=== PATIENT | female | born 1940 | race African-American/Black ===

== ENCOUNTER 2021-05-09 13:16 | Inpatient (IN) | payer OTHER, MEDICARE ==
[2021-05-08 11:58] VITALS: BMI 31.2
[~2021-05-09 13:16] MED LIST: BENZOIN 118 ML SPRAY.PUMP TP ONE; BUPIVACAINE HCL/PF 0.5% (5MG/ML) 10 ML VIAL ONE; BUPIVACAINE LIPOSOME/PF (EXPAREL) 266 MG/20 ML VIAL ONE; DEXMEDETOMIDINE HCL 200 MCG/2 ML IVPB ONE; LACTATED RINGERS SOLUTION 1,000 ML IV SCH; LIDOCAINE HCL 2% (20ML MULTI-DOSE VIAL) ONE; MAG HYDROX/AL HYDROX/SIMETH 30 ML UNIT-DOSE CUP PO PRN; MAGNESIUM HYDROX 2400MG/30ML ORAL SUSPENSION 30 ML CUP PO PRN; MIDAZOLAM HCL 2 MG/2 ML SINGLE DOSE VIAL ONE; ONDANSETRON 4 MG/2 ML VIAL IVPUSH PRN; PATIENT'S OWN MEDICATION (NON-FORMULARY) (Esomeprazole Magnesium [Nexium 24hr] 20 MG Capsu PO PRN; PROPOFOL 20 ML ONE; ROPIVACAINE HCL 0.5% 30ML VIAL ONE; SODIUM CHLORIDE 0.9% P/F 10 ML VIAL IJ ONE; ePHEDrine SULFATE 50 MG/1 ML AMPULE ONE
[2021-05-09] MEDS ORDERED: LACTATED RINGERS SOLUTION 1,000 ML IV SCH (13:30)
[2021-05-09] MEDS ORDERED: ACETAMINOPHEN INJECTION 100 ML IVPB ONE (13:34)
[2021-05-09] MEDS ORDERED: ACETAMINOPHEN 1000 MG/100 ML VIAL IVPB ONE (14:00)
[2021-05-09] MEDS: oxyCODONE HCL 5 MG TABLET PO PRN ×4 (15:18→23:41)
[2021-05-09] MEDS ORDERED: ceFAZolin SODIUM 1 GM VIAL ONE ×2 (17:07→21:06)
[2021-05-09] MEDS ORDERED: DEXTROSE 5%-WATER - 50 ML IVPB ONE ×2 (17:07→21:06)
[2021-05-09] MEDS: CEFAZOLIN 2 GM in DEXTROSE 5%-WATER - 50 ML IVPB SCH ×2 (17:17→23:42)
[2021-05-09] MEDS: SENNOSIDES/DOCUSATE COMBO (SENNA PLUS) TABLET (UD) PO SCH (21:14)
[2021-05-09] MEDS: ASPIRIN COATED 81 MG TABLET.EC PO SCH (21:14)
[2021-05-10] MEDS ORDERED: DEXTROSE 5%-WATER - 50 ML IVPB ONE (04:04)
[2021-05-10] MEDS ORDERED: ceFAZolin SODIUM 1 GM VIAL ONE (04:04)
[2021-05-10] MEDS: CEFAZOLIN 2 GM in DEXTROSE 5%-WATER - 50 ML IVPB SCH (04:10)
[2021-05-10] MEDS: oxyCODONE HCL 5 MG TABLET PO PRN ×5 (04:13→22:06)
[2021-05-10 08:25] LABS: CALCIUM 9.5 mg/dl (8.5-10); CREATININE 0.8 mg/dl (0.55-1.3)
[2021-05-10 08:28] LABS: HEMATOCRIT 34.3 % (32.4-45.2); HEMOGLOBIN 11.1 GM/dl (10.7-15.3); MCH 27.1 pg (25.7-33.7); MCHC 32.5 g/dl (32.0-36.0); MEAN CELL VOLUME 83.5 fl (80-96); MEAN PLT VOLUME 8.8 fl (7.5-11.1); PLATELET COUNT 311 10^3/uL (134-434); RBC 4.11 M/mm3 (3.60-5.2); RDW 14.4 % (11.6-15.6); WHITE BLOOD COUNT 13.2 K/mm3 (4.0-10.8)
[2021-05-10] MEDS: ASPIRIN COATED 81 MG TABLET.EC PO SCH ×2 (09:00→21:34)
[2021-05-10] MEDS: SENNOSIDES/DOCUSATE COMBO (SENNA PLUS) TABLET (UD) PO SCH ×2 (09:01→21:33)
[2021-05-10] MEDS: PANTOPRAZOLE 40 MG TABLET PO SCH (09:01)
[2021-05-10] MEDS: CELECOXIB 200 MG CAPSULE PO SCH (09:01)
[2021-05-10] MEDS: ANASTROZOLE 1 MG TABLET PO SCH ×2 (09:02→21:34)
[2021-05-11] MEDS: oxyCODONE HCL 5 MG TABLET PO PRN ×4 (01:44→14:08)
[2021-05-11 06:41] VITALS: TEMP 98.9
[2021-05-11] MEDS: SENNOSIDES/DOCUSATE COMBO (SENNA PLUS) TABLET (UD) PO SCH (09:06)
[2021-05-11] MEDS: PANTOPRAZOLE 40 MG TABLET PO SCH (09:06)
[2021-05-11] MEDS: ASPIRIN COATED 81 MG TABLET.EC PO SCH (09:06)
[2021-05-11] MEDS: CELECOXIB 200 MG CAPSULE PO SCH (09:06)
[2021-05-11 14:22] VITALS: BP 125/53; PULSE 76
== END 2021-05-11 14:50 | disposition home or self-care (01) | DRG 470 ==
LOC: FASUSAT 13:16 → FM/S 13:16 → FASUSAT 05-10 13:36 → FM/S 05-10 13:37
PROVIDERS: ADMIT Orthopaedic Surgery Orthopaedic Surgery of the Spine; ATTEND Orthopaedic Surgery Orthopaedic Surgery of the Spine
PROC: 0SRC0J9 Replacement of Right Knee Joint with Synthetic Substitute, Cemented, Open Approach (ICD-10-PCS; principal; 2021-05-09 10:47)
DX: M17.11 Unilateral primary osteoarthritis, right knee (principal); Z85.3 Personal history of malignant neoplasm of breast
CPT/HCPCS: 36415; 73560-TC-RT-FY; 80048; 85027; 88305-TC; 88311-TC; 94010; 94760; 97010-GP; 97116-GP; 97162-GP; C9803; J0131; U0003; U0005